=== PATIENT | female | born 1990 | race Caucasian/White ===

== ENCOUNTER 2022-07-23 04:08 | Emergency (ER) | payer MEDICAID ==
[~2022-07-23] VITALS: Ht 162.6 cm; Wt 74.8 kg
[2022-07-23 04:10] VITALS: BP 111/72
--- NOTE | 2022-07-23 04:10 | NUR ---
to bed ambulatory
--- NOTE | 2022-07-23 04:45 | NUR ---
Patient received on bed lying comfortably and awake. Alert and oriented x4. No acute distress. Respirations even and unlabored.
[2022-07-23] MEDS ORDERED: DICYCLOMINE 20 MG/2 ML VIAL IM ONE (04:50)
[2022-07-23] MEDS ORDERED: ONDANSETRON 4 MG ODT PO ONE (04:50)
[2022-07-23] MEDS ORDERED: BEN10 PO (05:44)
[2022-07-23] MEDS ORDERED: ONDA-188 PO (05:44)
[2022-07-23] MEDS ORDERED: KETOROLAC 30 MG/ML VIAL ONE (06:10)
[2022-07-23] MEDS ORDERED: DICYCLOMINE HCL LIQUID 20 MG, ALUMINUM HYD/MAG/SIMETHICONE 30 ML, LIDOCAINE VISCOUS 2% ... PO ONE ×3 (06:10)
[2022-07-23] MEDS ORDERED: KETOROLAC 30 MG/ML VIAL IM ONE (06:10)
[2022-07-23] MEDS ORDERED: ALUMINUM HYD/MAG/SIMETHICONE 30 ML UDC ONE (06:16)
[2022-07-23] MEDS ORDERED: DICYCLOMINE HCL LIQUID 10 MG/5 ML UDC ONE (06:16)
[2022-07-23 06:44] VITALS: BP 134/67
--- NOTE | 2022-07-23 06:44 | NUR ---
Patient discharged with v/s stable. Written and verbal after care instructions given and explained. Patient alert, oriented and verbalized understanding of instructions. Ambulatory with steady gait. All questions addressed prior to discharge. ID band removed. Patient advised to follow up with PMD. Rx of Bentyl and Zofran given. Patient educated on indication of medication including possible reaction and side effects. Opportunity to ask questions provided and answered.
== END 2022-07-23 06:44 | disposition home or self-care (01) ==
LOC: MED 04:08
DX: R11.2 Nausea with vomiting, unspecified (principal); R19.7 Diarrhea, unspecified; Z79.899 Other long term (current) drug therapy
CPT/HCPCS: 81025; 96372; 99284; J0500; J1885; Q0162